=== PATIENT | male | born 1965 | race Caucasian/White ===

== ENCOUNTER 2018-08-14 11:39 | Emergency (ER) | payer OTHER ==
[~2018-08-14] VITALS: Ht 170.2 cm; Wt 68.2 kg
--- NOTE | 2018-08-14 11:59 | REP ---
RIGHT SHOULDER, THREE VIEWS: HISTORY: Injury. There is no fracture or dislocation. The joint spaces are normal in appearance. IMPRESSION: There is no acute fracture or dislocation. Electronically Signed by Willi Castillo MD 08/14/2018 12:12 P
[2018-08-14] MEDS ORDERED: NAPR-50 PO (12:48)
[2018-08-14 13:07] VITALS: BP 123/79
== END 2018-08-14 13:09 | disposition home or self-care (01) ==
LOC: M ED 11:39
DX: M25.511 Pain in right shoulder (principal)

== ENCOUNTER → 2019-09-18 | Outpatient (REF) | payer SELFPAY ==
[~2019-09-18] MED LIST: NAPR-837 PO
[2019-09-18 11:55] LABS: INFLUENZA A AMPLIFICATION POSITIVE (NEGATIVE); INFLUENZA B AMPLIFICATION NEGATIVE (NEGATIVE)
== END ==
LOC: M LAB REF 11:13
PROVIDERS: ATTEND Physician Assistant Medical
DX: J11.1 Influenza due to unidentified influenza virus with other respiratory manifestations (principal)

== ENCOUNTER 2021-03-13 17:09 | Emergency (ER) | payer SELFPAY ==
[~2021-03-13] VITALS: Ht 170.2 cm; Wt 62.2 kg
[2021-03-13 17:10] VITALS: BP 127/84
== END 2021-03-13 18:00 | disposition left against medical advice (07) ==
LOC: M ED 17:09
DX: Z53.29 Procedure and treatment not carried out because of patient's decision for other reasons (principal)

== ENCOUNTER 2023-05-20 15:00 | Outpatient (RCR) | payer SELFPAY | END 2023-05-24 | LOC: M OUTALCOH 15:00 | PROVIDERS: ATTEND Psychiatry & Neurology Psychiatry | DX: F10.20 Alcohol dependence, uncomplicated (principal); F12.10 Cannabis abuse, uncomplicated ==

== ENCOUNTER 2023-07-22 15:57 | Outpatient (RCR) | payer SELFPAY | END 2023-07-24 | LOC: M OUTALCOH 15:57 | PROVIDERS: ATTEND Psychiatry & Neurology Psychiatry | DX: F10.20 Alcohol dependence, uncomplicated (principal); F12.10 Cannabis abuse, uncomplicated ==

== ENCOUNTER 2023-08-19 11:00 | Outpatient (RCR) | payer SELFPAY | END 2023-08-24 | LOC: M OUTALCOH 11:00 | PROVIDERS: ATTEND Psychiatry & Neurology Psychiatry | DX: F10.20 Alcohol dependence, uncomplicated (principal); F12.10 Cannabis abuse, uncomplicated ==

== ENCOUNTER 2023-09-16 15:00 | Outpatient (RCR) | payer SELFPAY | END 2023-09-22 | LOC: M OUTALCOH 15:00 | PROVIDERS: ATTEND Psychiatry & Neurology Psychiatry | DX: F10.20 Alcohol dependence, uncomplicated (principal); F12.10 Cannabis abuse, uncomplicated ==

== ENCOUNTER 2023-10-29 08:59 | Emergency (ER) | payer SELFPAY ==
[~2023-10-29] VITALS: Ht 170.2 cm; Wt 68.8 kg
[2023-10-29 08:59] VITALS: TEMP 97.6
[2023-10-29 09:24] LABS: BASO # 0.1 10^3/uL (0.0-0.2); BASO % 0.9 % (0.0-1.0); EOS # 0.1 10^3/uL (0.0-0.5); EOS % 0.6 % (0.0-3.0); HEMATOCRIT 42.9 % (42.0-52.0); HEMOGLOBIN 14.5 g/dl (13.5-17.5); LYMPH # 2.1 10^3/uL (1.5-5.0); LYMPH % 16.1 % (24.0-44.0); MEAN CORPUSCULAR HEMOGLOBIN 32.4 pg (27.0-33.0); MEAN CORPUSCULAR HGB CONC 33.8 g/dl (32.0-36.5); MONO % 7.4 % (2.0-8.0); NEUTROPHILS # 9.9 10^3/uL (1.5-8.5); NEUTROPHILS % 74.7 % (36.0-66.0); PLATELET COUNT, AUTOMATED 259 10^3/uL (150-450); RED BLOOD COUNT 4.47 10^6/uL (4.30-6.10); WHITE BLOOD COUNT 13.2 10^3/uL (4.0-10.0)
[2023-10-29 09:50] LABS: CK-MB VALUE MASS 4.9 NG/ML (<3.6)
[2023-10-29 09:51] LABS: LIPASE 34 U/L (12-53)
[2023-10-29 09:53] LABS: ALBUMIN 3.5 G/DL (3.2-5.2); ALKALINE PHOSPHATASE 76 U/L (46-116); ALT/SGPT 36 U/L (7.0-40); AST/SGOT 25 U/L (<34); BILIRUBIN,DIRECT 0.1 MG/DL (<0.4); BILIRUBIN,TOTAL 0.4 MG/DL (0.3-1.2); BLOOD UREA NITROGEN 17 MG/DL (9-23); CALCIUM LEVEL 8.9 MG/DL (8.5-10.1); CARBON DIOXIDE LEVEL 25 MMOL/L (20-31); CHLORIDE LEVEL 108 MMOL/L (98-107); CREATININE FOR GFR 1.07 MG/DL (0.70-1.30); GLOMERULAR FILTRATION RATE > 60.0 (>56); GLUCOSE, FASTING 109 MG/DL (60-100); POTASSIUM SERUM 4.8 MMOL/L (3.5-5.1); SODIUM LEVEL 140 MMOL/L (136-145); TOTAL PROTEIN 6.2 G/DL (5.7-8.2)
[2023-10-29 09:55] LABS: FREE T4 1.27 NG/DL (0.89-1.76)
[2023-10-29 10:01] LABS: PARTIAL THROMBOPLASTIN TIME 28.2 SECONDS (24.8-34.2); PROTHROMBIN TIME 12.9 SECONDS (12.5-14.5)
[2023-10-29 10:03] LABS: CPK CREATINE PHOSPHOKINASE 128 U/L (46-171); MB/CK RELATIVE INDEX 3.82 (< OR =4)
[2023-10-29 10:23] LABS: ABG BASE EXCESS -2.8 (-2.0-2.0); ABG HCO3 19.6 MMOL/L (22.0-26.0); ABG O2 SATURATION 94.1 % (95.0-99.0); ABG PARTIAL PRESSURE CO2 28.5 mmHg (35.0-45.0); ABG PARTIAL PRESSURE O2 70.2 mmHg (75.0-100.0); ABG STANDARD HCO3 22.1 MMOL/L. (22.0-26.0); ABG TOTAL CO2 20.5 MMOL/L (22.0-29.0); ABG pH (ARTERIAL) 7.456 UNITS (7.350-7.450)
[2023-10-29 11:06] LABS: CK-MB VALUE MASS 5.1 NG/ML (<3.6)
[2023-10-29 11:11] LABS: MB/CK RELATIVE INDEX 3.75 (< OR =4)
[2023-10-29] MEDS ORDERED: ISOVUE-370 76% 100ML VIAL As Ordered ONE (11:32)
[2023-10-29] MEDS ORDERED: LORazepam 2 MG TAB PO PRN (12:00)
[2023-10-29] MEDS: FUROSEMIDE 40MG/4ML VIAL IV ONE (12:16)
[2023-10-29] MEDS ORDERED: HOME MED LIST COMPLETE! XX SCH (12:35)
[2023-10-29 16:45] VITALS: BP 123/94; O2SAT 96
[2023-10-29] MEDS ORDERED: DIGOXIN INJ 0.5 MG/2 ML AMP IV ONE (16:55)
[2023-10-29] MEDS ORDERED: DIGOXIN 0.25 MG TAB PO ONE (16:55)
[2023-10-29] MEDS ORDERED: LISI10TA22 PO (17:00)
[2023-10-29] MEDS ORDERED: DIGO0.253 PO (17:00)
[2023-10-29] MEDS ORDERED: THIAMINE 100 MG TAB PO SCH (21:00)
[2023-10-30] MEDS ORDERED: MULTIVITAMINS/MINERALS THERAP 1 TAB PO SCH (09:00)
[2023-10-30] MEDS ORDERED: FOLIC ACID 1MG TAB PO SCH (09:00)
== END 2023-10-29 17:03 | disposition other institution (70) ==
LOC: M ED 09:39
DX: J96.01 Acute respiratory failure with hypoxia (principal); I34.0 Nonrheumatic mitral (valve) insufficiency; I51.7 Cardiomegaly; J91.8 Pleural effusion in other conditions classified elsewhere; F10.10 Alcohol abuse, uncomplicated; Z79.899 Other long term (current) drug therapy; Z53.9 Procedure and treatment not carried out, unspecified reason
CPT/HCPCS: 36600; 71045; 71275; 80048; 80076; 82077; 82550; 82553; 82803; 83690; 83880; 84439; 84443; 84484; 85025; 85610; 85730; 87486; 87581; 87633; 87798; 93005; 93041; 93306; 94760; 96374; 99285; J1940; Q9967

== ENCOUNTER → 2024-01-13 | Outpatient (CLI) | payer OTHER ==
[~2024-01-13] MED LIST changes: +DIGO0.253 PO; +LISI10TA22 PO
== END ==
LOC: M RAD 13:30
PROVIDERS: ATTEND Internal Medicine Cardiovascular Disease
DX: J90 Pleural effusion, not elsewhere classified (principal)

== ENCOUNTER → 2024-04-03 | Outpatient (REF) | payer OTHER ==
[2024-04-04 13:39] LABS: ALBUMIN 3.7 G/DL (3.2-5.2); ALKALINE PHOSPHATASE 65 U/L (46-116); ALT/SGPT 22 U/L (7.0-40); AST/SGOT 21 U/L (<34); BILIRUBIN,TOTAL 0.3 MG/DL (0.3-1.2); BLOOD UREA NITROGEN 23 MG/DL (9-23); CALCIUM LEVEL 9.6 MG/DL (8.5-10.1); CARBON DIOXIDE LEVEL 27 MMOL/L (20-31); CHLORIDE LEVEL 109 MMOL/L (98-107); GLOMERULAR FILTRATION RATE > 60.0 (>56); GLUCOSE, FASTING 89 MG/DL (60-100); POTASSIUM SERUM 4.4 MMOL/L (3.5-5.1); SODIUM LEVEL 142 MMOL/L (136-145); TOTAL PROTEIN 6.5 G/DL (5.7-8.2)
[2024-04-04 13:40] LABS: THYROID STIMULATING HORMONE 3.315 uIU/ML (0.55-4.78); TOTAL 25(OH) VITAMIN D 36.8 NG/ML (20.0-100.0)
== END ==
LOC: M LAB REF 12:34
PROVIDERS: ATTEND Physician Assistant
DX: I25.10 Atherosclerotic heart disease of native coronary artery without angina pectoris (principal); E55.9 Vitamin D deficiency, unspecified; Z13.29 Encounter for screening for other suspected endocrine disorder; Z13.1 Encounter for screening for diabetes mellitus

== ENCOUNTER 2024-09-30 07:05 | Emergency (ER) | payer OTHER ==
[~2024-09-30] VITALS: Ht 170.2 cm; Wt 61.1 kg
[2024-09-30 07:08] VITALS: TEMP 97.6
[2024-09-30 07:49] LABS: BASO # 0.1 10^3/uL (0.0-0.2); BASO % 0.9 % (0.0-1.0); EOS # 0.1 10^3/uL (0.0-0.5); EOS % 0.6 % (0.0-3.0); HEMATOCRIT 43.6 % (42.0-52.0); HEMOGLOBIN 14.3 g/dl (13.5-17.5); LYMPH # 1.2 10^3/uL (1.5-5.0); LYMPH % 9.4 % (24.0-44.0); MEAN CORPUSCULAR HEMOGLOBIN 32.2 pg (27.0-33.0); MEAN CORPUSCULAR HGB CONC 32.8 g/dl (32.0-36.5); MEAN CORPUSCULAR VOLUME 98.2 fl (80.0-96.0); MONO # 0.9 10^3/uL (0.0-0.8); MONO % 7.2 % (2.0-8.0); NEUTROPHILS # 10.4 10^3/uL (1.5-8.5); NEUTROPHILS % 81.6 % (36.0-66.0); PLATELET COUNT, AUTOMATED 271 10^3/uL (150-450); RED BLOOD COUNT 4.44 10^6/uL (4.30-6.10); WHITE BLOOD COUNT 12.7 10^3/uL (4.0-10.0)
[2024-09-30 08:01] LABS: INR 0.97; PROTHROMBIN TIME 13.1 SECONDS (12.5-14.5)
[2024-09-30 08:13] LABS: ALBUMIN 3.5 G/DL (3.2-5.2); ALKALINE PHOSPHATASE 85 U/L (40-129); ALT/SGPT 30 U/L (7.0-40); AST/SGOT 28 U/L (<34); BILIRUBIN,DIRECT 0.1 MG/DL (<0.4); BILIRUBIN,TOTAL 0.4 MG/DL (0.3-1.2); BLOOD UREA NITROGEN 19 MG/DL (9-23); CALCIUM LEVEL 9.2 MG/DL (8.5-10.1); CARBON DIOXIDE LEVEL 28 MMOL/L (20-31); CHLORIDE LEVEL 105 MMOL/L (98-107); CK-MB VALUE MASS 2.3 NG/ML (<3.6); CPK CREATINE PHOSPHOKINASE 104 U/L (46-171); CREATININE FOR GFR 1.25 MG/DL (0.70-1.30); GLOMERULAR FILTRATION RATE > 60.0 (>56); GLUCOSE, FASTING 116 MG/DL (60-100); MB/CK RELATIVE INDEX 2.21 (< OR =4); POTASSIUM SERUM 4.4 MMOL/L (3.5-5.1); SODIUM LEVEL 141 MMOL/L (136-145); TOTAL PROTEIN 6.7 G/DL (5.7-8.2)
[2024-09-30 08:14] LABS: THYROXINE (T4) 5.7 UG/DL (4.5-10.9)
[2024-09-30 08:15] LABS: THYROID STIMULATING HORMONE 2.897 uIU/ML (0.55-4.78)
[2024-09-30] MEDS: ASPIRIN 81MG CHEW TABLET PO ONE (08:15)
[2024-09-30 09:15] LABS: CK-MB VALUE MASS 2.1 NG/ML (<3.6)
[2024-09-30 09:16] LABS: MB/CK RELATIVE INDEX 2.14 (< OR =4)
[2024-09-30] MEDS ORDERED: ISOVUE-370 76% 100ML VIAL As Ordered ONE (09:47)
[2024-09-30 11:15] VITALS: BP 129/83; O2SAT 96
== END 2024-09-30 12:37 | disposition left against medical advice (07) ==
LOC: M ED 07:05
DX: R06.02 Shortness of breath (principal); I49.3 Ventricular premature depolarization; J15.8 Pneumonia due to other specified bacteria; I10 Essential (primary) hypertension; F10.10 Alcohol abuse, uncomplicated; Z79.899 Other long term (current) drug therapy; Z53.9 Procedure and treatment not carried out, unspecified reason

== ENCOUNTER → 2024-11-12 | Outpatient (CLI) | payer OTHER | LOC: M RAD 08:48 | PROVIDERS: ATTEND Physician Assistant | DX: R06.00 Dyspnea, unspecified (principal) ==